=== PATIENT | female | born 1975 | race Caucasian/White ===

== ENCOUNTER → 2017-07-16 13:21 | Outpatient (CLI) | payer OTHER, SELFPAY ==
[2017-07-21 15:46] LABS: HPV Reflexed? NOT INDICATED
== END ==
PROVIDERS: Family Provider Family Medicine; PCP Family Medicine; Visit Provider Obstetrics & Gynecology
DX: Z12.4 Encounter for screening for malignant neoplasm of cervix (principal)
CPT/HCPCS: 88175; G0145

== ENCOUNTER → 2017-10-07 08:19 | Outpatient (CLI) | payer OTHER, SELFPAY ==
--- NOTE | 2017-10-07 08:21 | BI_ITS ---
MAMMOGRAPHY - BILATERAL SCREENING REASON FOR EXAM: Female, 42 years old. Routine annual screening examination. PERTINENT HISTORY: NO FM HX , RT SKIN TAG IN IMF-TINY, LAST MONTH PROGESTERONE TECHNIQUE: Digital bilateral breast loni (3D mammographic acquisition) in the CC and MLO projections. 2-D mediolateral oblique (MLO) and craniocaudad (CC) views of both breasts were obtained. CAD: Full Field Digital Mammography with Computer Added Detection was performed. COMPARISON: Sep 18 2016 3:09pm FINDINGS: Breast Composition: The breasts are heterogeneously dense, which may obscure small masses. There is an new round density in the far posterior aspect of the right breast noted on the MLO view at the edge of the film for which further evaluation by spot compression views and ultrasound would be recommended. There are no suspicious calcifications. No other significant abnormalities are identified. BI/SCREENING MAMM (CAD), BILAT IMPRESSION: Further imaging evaluation recommended, as described above. (E) ASSESSMENT CATEGORY: BIRADS Category 0: Incomplete. Need additional imaging evaluation. A letter regarding these results will be sent to the patient by the facility within 30 days. Approximately 10% of breast cancers are not detected by mammography. A normal mammogram should not delay biopsy of a clinically suspicious abnormality. [id number] Electronically Signed: Lacey Larsen MD at 16:09 EDT Tel , Service support ,
== END ==
PROVIDERS: Family Provider Family Medicine; PCP Family Medicine; Visit Provider Obstetrics & Gynecology
DX: Z12.31 Encounter for screening mammogram for malignant neoplasm of breast (principal)
CPT/HCPCS: 77063; 77067

== ENCOUNTER → 2017-10-21 10:02 | Outpatient (CLI) | payer OTHER, SELFPAY ==
--- NOTE | 2017-10-21 10:06 | US_ITS ---
STUDY: ULTRASOUND BREAST - RIGHT REASON FOR EXAM: Female, 42 years old. Abnormal screening mammogram. TECHNIQUE: Axial and longitudinal images of the RIGHT breast were performed with a high resolution ultrasound transducer. COMPARISON: Comparison is made with prior mammogram dated October 21, 2017 and October 07, 2017. FINDINGS: RIGHT Breast: There is a 3 mm x 3 mm x 2 mm cyst at 11:00 position breast at 4 cm from nipple. This also evidence of a 6 mm x 7 mm x 2 mm cyst at the 10:00 position breast at 6 cm from the nipple. US/Breast Limited Unilateral IMPRESSION: 2 small cysts are seen as described. Routine mammographic follow-up is recommended. ASSESSMENT CATEGORY: BIRADS Category 2: Benign. A letter regarding these results will be sent to the patient by the facility within 30 days. Electronically Signed: Collin Obando MD at 13:43 EDT Tel [phone], Service support ,
--- NOTE | 2017-10-21 10:06 | BI_ITS ---
MAMMOGRAPHY - UNILATERAL DIAGNOSTIC: RIGHT BREAST REASON FOR EXAM: Female, 42 years old. Abnormal screening mammogram. PERTINENT HISTORY: Non-contributory. TECHNIQUE: Compression spot views of the right breast were obtained. Were obtained. CAD: Full Field Digital Mammography with Computer Added Detection was performed. COMPARISON: Comparison is made with prior examination of October 07, 2017. FINDINGS: Breast Composition: The breasts are heterogeneously dense, which may obscure small masses. There are no dominant masses or suspicious calcifications. A faint 5.6 mm nodule is seen deep in the posterior aspect of the right breast. This is not well seen on the craniocaudad view. Correlation with ultrasound is recommended. No other significant abnormalities are identified. BI/DIAG MAMM W/CAD, UNILAT IMPRESSION: 5.6 mm nodule deep in the posterolateral aspect of the right breast as described. Correlation with ultrasound is recommended. ASSESSMENT CATEGORY: BIRADS Category 0: Incomplete. Need additional imaging evaluation. A letter regarding these results will be sent to the patient by the facility within 30 days. Approximately 10% of breast cancers are not detected by mammography. A normal mammogram should not delay biopsy of a clinically suspicious abnormality. Electronically Signed: Collin Obando MD at 13:07 EDT Tel [phone], Service support ,
== END ==
PROVIDERS: Family Provider Family Medicine; PCP Family Medicine; Visit Provider Obstetrics & Gynecology
DX: R92.2 Inconclusive mammogram (principal)
CPT/HCPCS: 76642; 77065

== ENCOUNTER → 2018-12-13 | Outpatient (CLI) | payer OTHER, SELFPAY ==
--- NOTE | 2018-12-13 13:22 | BI_ITS ---
MAMMOGRAPHY - BILATERAL SCREENING REASON FOR EXAM: Female, 43 years old. Routine annual screening examination. PERTINENT HISTORY: Non-contributory. TECHNIQUE: Digital bilateral breast nancy (3D mammographic acquisition) in the CC and MLO projections. 2-D mediolateral oblique (MLO) and craniocaudad (CC) views of both breasts were obtained. CAD: Full Field Digital Mammography with Computer Added Detection was performed. COMPARISON: Comparison is made with prior study dated October 07, 2017 and September 18, 2016. FINDINGS: Breast Composition: The breasts are heterogeneously dense, which may obscure small masses. There are no dominant masses or suspicious calcifications. No other significant abnormalities are identified. There has been no significant change since the prior study. BI/SCREEN MAMM (CAD) W/NANCY BILAT IMPRESSION: Stable bilateral screening mammogram. Yearly follow-up mammogram recommended. (A) ASSESSMENT CATEGORY: BIRADS Category 1: Negative. A letter regarding these results will be sent to the patient by the facility within 30 days. Approximately 10% of breast cancers are not detected by mammography. A normal mammogram should not delay biopsy of a clinically suspicious abnormality. [id number] Electronically Signed: Collin Obando, at 15:42 EDT , Service support ,
== END | disposition home or self-care (01) ==
LOC: OPBI 13:20
PROVIDERS: Family Provider Family Medicine; PCP Family Medicine; Referring Provider Obstetrics & Gynecology; Visit Provider Obstetrics & Gynecology
DX: Z12.31 Encounter for screening mammogram for malignant neoplasm of breast (principal)
CPT/HCPCS: 77063; 77067

== ENCOUNTER → 2019-03-22 08:10 | Outpatient (CLI) | payer OTHER, SELFPAY ==
[2019-03-22 10:23] LABS: Vitamin D,25 Hydroxy 31.5 ng/mL (29.95-100.01)
[2019-03-22 10:26] LABS: Anion Gap 6 (5-15); BUN 13 mg/dL (7-18); BUN/Creat Ratio 15.1 RATIO (10-20); Calcium,Total 9.1 mg/dL (8.5-10.1); Chloride 107 mmol/L (98-107); Cholesterol 177 mg/dL (200); Creatinine, Serum 0.86 mg/dL (0.55-1.02); EST Glomerular Filtration Rate 76 mL/min (>60); Est Glom Filt Rate - Afr Amer 91 mL/min (>60); Glucose 90 mg/dL (74-106); High Density Lipoprotein 64 mg/dL; Potassium 4.3 mmol/L (3.5-5.1); Sodium Level 139 mmol/L (136-145); Thyroid Stim Hormone (TSH) 2.62 uIU/mL (0.358-3.74); Triglycerides 87 mg/dL; Very Low Density Lipoprotein 17 mg/dL (5-40)
[2019-03-22 12:02] LABS: Iron 95 ug/dL (50-170)
== END ==
PROVIDERS: Family Provider Family Medicine; PCP Family Medicine; Referring Provider Family Medicine; Visit Provider Family Medicine
DX: F32.9 Major depressive disorder, single episode, unspecified (principal); L65.9 Nonscarring hair loss, unspecified; Z13.220 Encounter for screening for lipoid disorders
CPT/HCPCS: 36415; 80048; 80061; 82306; 83540; 84443

== ENCOUNTER → 2019-11-03 | Outpatient (CLI) | payer OTHER, SELFPAY ==
[2019-11-04 14:01] LABS: HPV Reflexed? NOT INDICATED
== END | disposition home or self-care (01) ==
LOC: LABSPEC 13:10
PROVIDERS: PCP Family Medicine; Visit Provider Obstetrics & Gynecology
DX: Z12.4 Encounter for screening for malignant neoplasm of cervix (principal)
CPT/HCPCS: 88175; G0145

== ENCOUNTER → 2019-12-15 13:00 | Outpatient (CLI) | payer OTHER, SELFPAY ==
--- NOTE | 2019-12-15 13:03 | BI_ITS ---
MAMMOGRAPHY - BILATERAL SCREENING REASON FOR EXAM: Female, 44 years old. Routine annual screening examination. PERTINENT HISTORY: Non-contributory. TECHNIQUE: Digital bilateral breast nancy (3D mammographic acquisition) in the CC and MLO projections. 2-D mediolateral oblique (MLO) and craniocaudad (CC) views of both breasts were obtained. CAD: Full Field Digital Mammography with Computer Added Detection was performed. COMPARISON: Comparison is made with prior study dated December 13, 2018 and October 21, 2017. FINDINGS: Breast Composition: The breasts are heterogeneously dense, which may obscure small masses. There are no dominant masses or suspicious calcifications. Stable benign appearing bilateral axillary nodes. No other significant abnormalities are identified. There has been no significant change since the prior study. BI/SCREEN MAMM (CAD) W/NANCY BILAT IMPRESSION: Stable bilateral screening mammogram. Yearly follow-up mammogram recommended. (A) ASSESSMENT CATEGORY: BIRADS Category 2: Benign. A letter regarding these results will be sent to the patient by the facility within 30 days. Approximately 10% of breast cancers are not detected by mammography. A normal mammogram should not delay biopsy of a clinically suspicious abnormality. [id number] Electronically Signed: Collin Obando, at 14:03 EDT , Service support ,
== END ==
PROVIDERS: PCP Family Medicine; Referring Provider Obstetrics & Gynecology; Visit Provider Obstetrics & Gynecology
DX: Z12.31 Encounter for screening mammogram for malignant neoplasm of breast (principal)
CPT/HCPCS: 77063; 77067

== ENCOUNTER → 2021-01-17 10:16 | Outpatient (CLI) | payer OTHER, SELFPAY ==
--- NOTE | 2021-01-17 10:35 | BI_ITS ---
MAMMOGRAPHY - BILATERAL SCREENING REASON FOR EXAM: Female, 45 years old. Routine annual screening examination. PERTINENT HISTORY: Non-contributory. TECHNIQUE: Digital bilateral breast nancy (3D mammographic acquisition) in the CC and MLO projections. 2-D mediolateral oblique (MLO) and craniocaudad (CC) views of both breasts were obtained. CAD: Full Field Digital Mammography with Computer Added Detection was performed. COMPARISON: Comparison is made with prior study 12/15/2019 and 12/13/2018. FINDINGS: Breast Composition: The breasts are heterogeneously dense, which may obscure small masses. There are no dominant masses or suspicious calcifications. Stable small benign-appearing bilateral axillary nodes. No other significant abnormalities are identified. There has been no significant change since the prior study. BI/SCRN MAMM (CAD)W/NANCY BILAT IMPRESSION: Stable bilateral screening mammogram. Yearly follow-up mammogram recommended. (A) ASSESSMENT CATEGORY: BIRADS Category 2: Benign. A letter regarding these results will be sent to the patient by the facility within 30 days. Approximately 10% of breast cancers are not detected by mammography. A normal mammogram should not delay biopsy of a clinically suspicious abnormality. [id number] Electronically Signed: Collin Obando MD at 12:03 EDT , Service support ,
== END ==
PROVIDERS: PCP Family Medicine; Referring Provider Obstetrics & Gynecology; Visit Provider Obstetrics & Gynecology
DX: Z12.31 Encounter for screening mammogram for malignant neoplasm of breast (principal)
CPT/HCPCS: 77063; 77067

== ENCOUNTER → 2021-03-06 15:54 | Outpatient (CLI) | payer OTHER, SELFPAY ==
--- NOTE | 2021-03-06 15:57 | RAD_ITS ---
STUDY: X-RAY - CERVICAL SPINE REASON FOR EXAM: Female, 45 years old. Neck pain and headache TECHNIQUE: 6 view(s) of the cervical spine were obtained. COMPARISON: None FINDINGS: Normal anterior atlantoaxial articulation. Normal odontoid process. There is straightening of the normal cervical lordosis. Normal vertebral bodies and endplates. Mild disc space narrowing. Normal visualized intervertebral neuroforamina. The soft tissue structures are unremarkable. RAD/Cerv Spine 4 or 5 Views IMPRESSION: Mild, age consistent degenerative changes, no acute findings Electronically Signed: Dio Guaman MD at 17:37 EDT , Service support ,
--- NOTE | 2021-03-06 15:57 | RAD_ITS ---
STUDY: X-RAY - THORACIC SPINE REASON FOR EXAM: Female, 45 years old. Mid back pain TECHNIQUE: 2 view(s) of the thoracic spine were obtained. COMPARISON: None. FINDINGS: Normal kyphosis of the thoracic spine. There is no substantial scoliosis. Normal thoracic vertebrae and endplates. Normal disc space heights. The soft tissue structures are unremarkable. RAD/Thoracic Spine 2 Views IMPRESSION: Normal x-ray examination of the thoracic spine. Electronically Signed: Dio Guaman MD at 17:37 EDT , Service support ,
--- NOTE | 2021-03-06 15:58 | RAD_ITS ---
STUDY: X-RAY - LEFT ANKLE REASON FOR EXAM: Female, 45 years old. Pain and stiffness TECHNIQUE: 3 view(s) of the ankle. COMPARISON: None. FINDINGS: Normal visualized distal tibia and fibula. Normal medial and lateral malleoli. Normal tibiotalar articulation and ankle mortise. Normal visualized talus and calcaneus. The visualized subtalar, talonavicular, calcaneocuboid and tarsal articulations are normal. The soft tissue structures are unremarkable. RAD/Ankle min 3 Views IMPRESSION: Normal x-ray examination of the ankle. Electronically Signed: Dio Guaman MD at 17:36 EDT , Service support ,
== END ==
PROVIDERS: PCP Family Medicine; Referring Provider Family Medicine; Visit Provider Family Medicine
DX: M79.18 Myalgia, other site (principal); M54.9 Dorsalgia, unspecified; M25.572 Pain in left ankle and joints of left foot
CPT/HCPCS: 72050; 72070; 73610

== ENCOUNTER 2021-04-01 17:57 | Outpatient (RCR) | payer OTHER, SELFPAY ==
--- NOTE | 2021-04-02 09:13 | HP.PTEVAL_ITS ---
Patient's Visit Information JORGE GLASER is a 45 year old F referred to Physical Therapy by Dr. Arvind Duran MD with a diagnosis of THORACIC BACK PAIN,MUSCLE TIGHTNESS. Date of Evaluation: 04/01/21 Physical Therapist: Phong Jean PT, Cert MDT, OCS - Visit Plan Frequency: 1-2x /Week Duration: 4 Weeks Plan: PT INTERVETIONS POSTURAL EX'S,THORACIC STRENGTHENING,DLS AND MODALTIES - Subjective This 45 y/o female presents to physical therapy with thoracic pain. Pain has been for thoracic pain for 2 years. No mechanism injury ,just insidious. Patient pain located between scapular and upper lumbar. Seen chiropractor doing adjustments. Symptoms intermittent. Dr. Duran x-rays -. Patient has muscle relaxers. Aggravating factors AM, end of day ,if pain at its worst lifting and bending can make it worse. Patient not hurting then work demand ate not the limiting factors . Patient pain can anterior chest pain. Denies paresthesia/tingling . Coughing/sneezing can be +. Pain can affects sleeping. Patient symptoms interfere with QOL and function. Patient goals to eliminate pain. SOCAIL: . VOCATION: [employer] - Pain Bilateral Back Pain Intensity (Out of 10): 2 Pain Intensity Range: 10 - Objective POSTURE: decrease kyphosis, increase lordosis. PLAPTION: tender levator right. AROM: BUE WFL EXCESSIVE. FLEBILITY: hamstrings WNL. MMT: quad/hams 4/5,hip flexion 4/5,ankle 4/5. BUE 4/5 except shoulder 4-/5,scapular 3/5. CERVICAL ROM: WNL. THORACIC : WNL ALL PLANES ,INCREASE EXTESNION. LUMBAR ROM: WNL ,EXCESSIVE EXTENSION - Special Tests Thoracic Sitting: Flexion - Mechanical Response: No effect Thoracic Sitting: Flexion - Symptoms During Testing: Increases Thoracic Sitting: Flexion - Symptoms After Testing: Worse Thoracic Sitting: Extension - Mechanical Response: No effect Thoracic Sitting: Extension - Symptoms During Testing: No effect Thoracic Sitting: Extension - Symptoms After Testing: No effect Thoracic Sitting: Right rotation - Mechanical Response: No effect Thoracic Sitting: Right Rotation - Symptoms During Testing: No effect Thoracic Sitting: Right Rotation - Symptoms After Testing: No effect Thoracic Sitting: Left rotation - Mechanical Response: No effect Thoracic Sitting: Left Rotation - Symptoms During Testing: No effect Thoracic Sitting: Left Rotation - Symptoms After Testing: No effect L/S Slump test left side: Negative L/S Slump test right side: Negative L/S Left Straight Leg Raise: Negative L/S Right Straight Leg Raise: Negative Lumbar Standing: Flexion - Mechanical Response: No effect Lumbar Standing: Flexion - Symptoms During Testing: No effect Lumbar Standing: Flexion - Symptoms After Testing: No effect Lumbar Standing: Extension - Mechanical Response: No effect Lumbar Standing: Extension - Symptoms During Testing: No effect Lumbar Standing: Extension - Symptoms After Testing: No effect Lumbar Standing: Right Side Glides - Mechanical Response: No effect Lumbar Standing: Right Side [place] - Symptoms During Testing: No effect Lumbar Standing: Right Side [place] - Symptoms After Testing: No effect Lumbar Standing: Left Side [place] - Mechanical Response: No effect Lumbar Standing: Left Side [place] - Symptoms During Testing: No effect Lumbar Standing: Left Side [place] - Symptoms After Testing: No effect - Balance/Special Test Scores Oswestry Low Back Score: 22 - Goals Goal 1:: Patient to be I with HEP for spine Goal Time Frame: 4-6 Weeks Goal 2:: Improve posture for ADL'S to improve function Goal Time Frame: 4-6 Weeks Goal 3:: Patient to decrease thoracic pain by 50% or> to improve function and QOL Goal Time Frame: 4-6 Weeks Goal 4:: Patient to improve postural strength to minimize symptoms by 50% improvement. Goal Time Frame: 4-6 Weeks Goal 5:: Patient to improve back owestry score by 5 points to improve QOL. Goal Time Frame: 4-6 Weeks - Rehabilitation Potential Physical Therapy Diagnosis: Patient has increase lordosis and postural weakness with increase mobility in thoracic and lumbar spine with pain laxity in joints along with general weakness benefit from skilled PT Rehabilitation Potential: Good - Anticipated Interventions Patient/Client Instruction: Educate patient on: Condition, Plan of Care For the Purpose of:: To decrease pain, To improve muscle performance and motor function, To improve ability to perform ADL's, To increase tolerance to activity/condition/position, To improve ability of physical actions for home/community/work/leisure, To improve health of tissue, To decrease soft tissue restriction, To increase flexibility/ROM, To reduce risk of recurrence Therapeutic Exercise to Include: Strength training, Endurance training, Balance training, Postural training, Flexibilty training, Dynamic Lumbar Stabilization For the Purpose of:: To decrease pain, To improve muscle performance and motor function, To improve ability to perform ADL's, To increase tolerance to activity/condition/position, To improve performance and independence with ADL's, To improve ability of physical actions for home/community/work/leisure, To improve health of tissue, To decrease soft tissue restriction, To increase flexibility/ROM, To prevent re-injury TENS: Yes IF ES: Yes Cryotherapy (ice pack, ice massage): Yes Thermo therapy (hot pack): Yes Ultrasound (thermal/non thermal): Yes For the Purpose of:: To decrease pain, To increase ROM, To improve nutrient delivery to tissue, To increase oxygenation perfusion, To improve health of tissue, To decrease soft tissue restriction Thank you for the opportunity to evaluate your patient. For Medicare and Medicare HMO plans, please review the plan of care and approve it. It will need to be FAXED BACK to us at [phone] for Medicare purposes. For Medicare only, by signing this I certify the plan of care. Please let me know if there are questions or concerns regarding this plan of care. Physician Signature: Date:
--- NOTE | 2021-08-02 07:51 | HP.PT.NRP ---
JORGE GLASER was seen in my office for initial evaluation on 04/01/21. The following Plan of Care was established for this patient: Initial Frequency: 1-2x /Week Initial Duration: 4 Weeks Patient/Client Instruction: Educate patient on: Condition, Plan of Care For the Purpose of:: To decrease pain, To improve muscle performance and motor function, To improve ability to perform ADL's, To increase tolerance to activity/condition/position, To improve ability of physical actions for home/community/work/leisure, To improve health of tissue, To decrease soft tissue restriction, To increase flexibility/ROM, To reduce risk of recurrence Therapeutic Exercise to Include: Strength training, Endurance training, Balance training, Postural training, Flexibilty training, Dynamic Lumbar Stabilization For the Purpose of:: To decrease pain, To improve muscle performance and motor function, To improve ability to perform ADL's, To increase tolerance to activity/condition/position, To improve performance and independence with ADL's, To improve ability of physical actions for home/community/work/leisure, To improve health of tissue, To decrease soft tissue restriction, To increase flexibility/ROM, To prevent re-injury TENS: Yes IF ES: Yes Cryotherapy (ice pack, ice massage): Yes Thermo therapy (hot pack): Yes Ultrasound (thermal/non thermal): Yes For the Purpose of:: To decrease pain, To increase ROM, To improve nutrient delivery to tissue, To increase oxygenation perfusion, To improve health of tissue, To decrease soft tissue restriction This patient was last seen in our office . Pertinent comments regarding their Physical therapy will appear below: Patient was seen for PT for intial evaluation for HEP At this point I will be discontinuing this patient from physical therapy. I would be happy to see this patient again in the future if found appropriate by the physician. Thank you! Phong Jean, PT, Cert MDT, OCS Balance/Gait/Functional tests - Balance/Special Test Scores Oswestry Low Back Score: 22
== END 2021-04-01 19:00 | disposition home or self-care (01) ==
LOC: PT 17:57
PROVIDERS: PCP Family Medicine; Referring Provider Family Medicine; Visit Provider Family Medicine
DX: M54.6 Pain in thoracic spine (principal); R29.898 Other symptoms and signs involving the musculoskeletal system
CPT/HCPCS: 97110; 97161

== ENCOUNTER → 2022-07-03 | Outpatient (CLI) | payer OTHER, SELFPAY ==
--- NOTE | 2022-07-03 15:44 | MRI_ITS ---
STUDY: MRI LEFT ANKLE WITHOUT CONTRAST REASON FOR EXAM: Female, 47 years old. ANKLE PAIN TECHNIQUE: Standardized fat and water weighted pulse sequences were obtained in all 3 orthogonal planes. COMPARISON: X-ray March 06, 2021 FINDINGS: Normal subcutis adipose space. Normal posterior tibialis tendon. Normal flexor digitorum longus tendon. Normal flexor hallucis longus tendon. Normal peroneus longus and brevis tendons. Normal tibialis anterior tendon. Normal extensor hallucis longus tendon. Normal extensor digitorum longus tendons. Normal Achilles tendon and teno-osseous insertion. Normal plantar fascia. Normal plantar calcaneal tubercles. Normal intrinsic muscles of the rearfoot. Normal distal tibiofibular syndesmotic ligamentous complex. Normal lateral ligamentous complex. Normal subtalar ligaments and sinus tarsi. Normal deltoid ligamentous complexes. Normal plantar calcaneonavicular (spring) ligament. Normal tibiotalar articulation. Normal talar dome. There is os trigonum. Normal subtalar articulations. There is marrow edema of the neck and head of the talus. There is marrow edema of the navicular. There is moderate joint space narrowing and spurring with subchondral cysts of the talonavicular articulation. Normal calcaneocuboid articulation. Normal navicular-cuneiform articulations. 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 Electronically Signed: Maurice Harmon MD at 8:30 EST ,
== END | disposition home or self-care (01) ==
LOC: MRI 15:24
PROVIDERS: PCP Family Medicine; Visit Provider Family Medicine
DX: S92.252A Displaced fracture of navicular [scaphoid] of left foot, initial encounter for closed fracture (principal); M19.072 Primary osteoarthritis, left ankle and foot; R60.0 Localized edema; M25.579 Pain in unspecified ankle and joints of unspecified foot
CPT/HCPCS: 73721

== ENCOUNTER → 2022-09-30 | Outpatient (CLI) | payer OTHER, SELFPAY ==
[2022-10-07 14:09] LABS: HPV APTIMA, High Risk Negative (Negative)
== END | disposition home or self-care (01) ==
PROVIDERS: PCP Family Medicine; Visit Provider Nurse Practitioner Women's Health
DX: Z01.419 Encounter for gynecological examination (general) (routine) without abnormal findings (principal)
CPT/HCPCS: 87624; 88175; G0145

== ENCOUNTER → 2022-10-06 | Outpatient (CLI) | payer OTHER, SELFPAY ==
--- NOTE | 2022-10-06 14:50 | BI_ITS ---
MAMMOGRAPHY - BILATERAL SCREENING REASON FOR EXAM: Female, 47 years old. Routine annual screening examination. PERTINENT HISTORY: Non-contributory. TECHNIQUE: Digital bilateral breast nancy (3D mammographic acquisition) in the CC and MLO projections. 2-D mediolateral oblique (MLO) and craniocaudad (CC) views of both breasts were obtained. CAD: Full Field Digital Mammography with Computer Added Detection was performed. COMPARISON: Comparison is made with prior study January 17, 2021. FINDINGS: Breast Composition: The breasts are heterogeneously dense, which may obscure small masses. There are no dominant masses or suspicious calcifications. Stable benign-appearing bilateral axillary lymph nodes. No other significant abnormalities are identified. There has been no significant change since the prior study. BI/SCRN MAMM (CAD)W/NANCY BILAT IMPRESSION: Stable bilateral screening mammogram. Yearly follow-up mammogram recommended. (A) ASSESSMENT CATEGORY: BIRADS Category 2: Benign. A letter regarding these results will be sent to the patient by the facility within 30 days. Approximately 10% of breast cancers are not detected by mammography. A normal mammogram should not delay biopsy of a clinically suspicious abnormality. [id number] Electronically Signed: Collin Obando MD at 15:44 EDT ,
== END | disposition home or self-care (01) ==
PROVIDERS: PCP Family Medicine; Referring Provider Nurse Practitioner Women's Health; Visit Provider Nurse Practitioner Women's Health
DX: Z12.31 Encounter for screening mammogram for malignant neoplasm of breast (principal)
CPT/HCPCS: 77063; 77067

== ENCOUNTER → 2025-04-25 | Outpatient (CLI) | payer OTHER, SELFPAY ==
--- NOTE | 2025-04-25 13:53 | US_ITS ---
EXAM: Targeted ultrasound of the left axilla. CLINICAL HISTORY: Palpable left axillary lump. COMPARISON: None TECHNIQUE: Targeted ultrasound of the left axilla was performed. FINDINGS: No sonographic abnormality is seen. US/Axilla - Left IMPRESSION: No sonographic abnormality is seen. Clinical correlation recommended. Reading Location: [id number]
--- OUTSIDE RECORDS SUMMARY | 2025-04-25 18:11 | XMS RPT_ITS | CCD ---
Author Organization [facility] Care Team Providers Care Flag Signalman Name Role Phone Dr. Arvind Duran Primary Care Provider [phone] Dr. Arvind Duran Referring Provider Javon CHASE, FARRAH Sheppard Attending Provider Charles Hebert Attending Unavailable Charles Hebert Referring Unavailable Charles Hebert Primary Care Unavailable Medications Current Medications Medication Drug Class(es) Dates Sig (Normalized) Sig (Original) traMADol hydrochloride 50 mg oral tablet (1 source) Opioid Agonist Start: 09-30-2022 take 50 mg by mouth three times daily Tramadol Active 50 MG PO THREE TIMES A DAY September 30, 2022 12:00am Completed/Discontinued Medications Medication Drug Class(es) Dates Sig (Normalized) Sig (Original) acetaminophen 325 mg / HYDROcodone bitartrate 5 mg oral tablet (3 sources) Opioid Agonist Start: 04-19-2016 End: 09-30-2022 take 1 tablet by mouth every six hours as needed Hydrocodone-Acetami nophen Discontinued 1 TABLET PO EVERY 6 HOURS NEEDED 5 April 19, 2016 1:00am September 30, 2022 2:18pm Problems Problem Classification Problem Date Documented Da te Episodic/Chronic Other female genital disorders (1 source) History of dysmenorrhea; Translations: [Personal history of other diseases of the female genital tract] 09-30-2022 Episodic Other female genital disorders (1 source) Personal history of other diseases of the female genital tract; Translations: [Personal history of other genital system and obstetric disorders] 09-30-2022 Episodic Results Test Name Value Interpretation Reference Range Facility Cervical or vagninal specime n microscopic examination by cytology stain (reported asOrdered By: Valarie Alejandro on 09-30-2022 Cytology report Cyto stain Doc (Cvx/Vag) Comment . [facility] Comment on above: The Pap smear is a s creening test designed to aid in thedetection of premalignant and malignant conditions of theuterine cervix. It is not a diagnostic procedure andshould not be used as the sole means of detecting cervicalcancer. Both false-positive and false-negative reports dooccur. Detection in cervical specim en of any of human papilloma virus (HPV) 16, 18, 31, 33,Ordered By: Valarie Alejandro on 09-30-2022 HPV 16+18+31+33+35+39+45+51 +52+56+58+59+66+68 DNA Probe+sig amp Ql (Cvx) Negative Negative [facility] Comment on above: This nucleic acid am plification test detects fourteen high-risk HPV types (16,18,31,33,35,39,45,51,52,56,58,59,66,68)without differentiation. Laboratory - CytologyOrdered By: Valarie Alejandro on 09-30-2022 Emergency Medicine Physician Cyto stain Nom (Cvx/Vag) [ID] Comment . [facility] Comment on above: Lori Courtney, Cyto technologist (ASCP) Laboratory - Miscellaneous t estsOrdered By: Valarie Alejandro on 09-30-2022 Service comment (Unsp spec) [Interp] Comment . [facility] Comment on above: This liquid based Th inPrep(R) pap test was screened withthe use of an image guided system. Service comment (Unsp spec) [Interp] . . [facility] Liquid-based cerv Pap + CT/G C by SKY w reflex to high-risk HPV for ASCUSOrdered By: Valarie Alejandro on 09-30-2022 Cytology report Cyto stain.thin prep Doc (Cvx/Vag) Comment . [facility] Comment on above: Criteria not met, HP V Genotype not performed.Performed at: - [address] [id number] Director: Bhavana Lezama MD, Phone: [phone] at: =[facility] [id number] Director: Bhavana Lezama MD, Phone: [phone] No Panel InformationOrdered By: Valarie Alejandro on 09-30-2022 Pathology report final diagnosis Narrative Comment . [facility] Comment on above: NEGATIVE FOR INTRAEP ITHELIAL LESION OR MALIGNANCY. Vital Signs Date Time Vital Sign Value Performing Clinician Reinaldo ramachandran 09-30-2022 14:14-0400 Body height 154.[address] Arvind Duran Work Phone: [facility] 09-30-2022 14:14-0400 Body mass index (BMI) [Ratio] 30.9 kg/m2 Dr. Arvind Duran Work Phone: [facility] 09-30-2022 14:14-0400 Body weight 74.[address] Arvind Duran Work Phone: [facility] 09-30-2022 14:14-0400 Diastolic blood pressure 72 mm[Hg] Dr. Arvind Duran Work Phone: [facility] 09-30-2022 14:14-0400 Systolic blood pressure 110 mm[Hg] Dr. Arvind Duran Work Phone: [facility] Encounters Encounter Date Encounter Type Care Provider Facility Start: 01-04-2024 Encounter for genera l adult medical examination without abnormal findings [facility] Start: 01-04-2024 ambulatory [facility] Facility: [facility] Start: 10-06-2022 End: 10-06-[address] Arvind Duran Work Phone: [facility] Work Phone: Start: 10-06-2022 End: 10-06-[address] Arvind Duran Work Phone: [facility]-Outpatient Breast Imaging Start: 09-30-2022 End: 09-30-[address] Arvind Duran Work Phone: [facility]-Laboratory, Specimen Start: 09-30-2022 End: 09-30-[address] Arvind Duran Work Phone: [facility] Start: 07-03-2022 End: 07-03-[address] [facility] Work Phone: Start: 07-03-2022 End: 07-03-[address] [facility] - [facility] Procedures Date Procedure Procedure Detail Performing Clinician Start: 10-06-2022 Screening mammography Pino lucilaKieran PattersonArvind Ranney Work Phone: Start: 07-03-2022 MRI of joint of lowe r extremity Plan of Treatment Date Care Activity Detail Author US [facility] transvaginal [facility] Payers Date Payer Category Payer Self-pay [id number] 2024 Unknown [id number] Unknown [id number] Social History Date Type Detail Facility [facility] Work Phone: Start: 1975 Sex Assigned At Female [facility] Start: 04-19-2016 End: 09-30-2022 Tobacco smoking status [facility]IS Unknown if ever smoked [facility] Clinical Note 09-30-2022 Note Date & Type Note Facility 09-30-[address] [facility] Pap Smear Specimen Adequacy September 30, 2022 6:04pm Comment . Satisfactory for evaluation. Endocervical and/or squamous metaplasticcells (endocervical component) are present. Comment on above: Satisfactory for ling luation. Endocervical and/or squamous metaplasticcells (endocervical component) are present. Evaluation note Note Date & Type Note Facility Evaluation note No assessment information availa ble [facility] Work Phone: Evaluation note Note Date & Type Note Facility Evaluation note Diagnosis Onset Date History of dysmenorrhea acut e Encounter for routine gyneco logical examination noneactive 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 Reason for Visit History of dysmenorr hea Encounter for routine gynecological examination Advance Directives No Advanced Directives Records Found Advance Directive Response Recorded Date/ Time Living Will No April 19, 2 016 3:00pm Power of Concrete Puddler No April 19, 2016 3:00pm Advance Directive Response Recorded Date/ Time Living Will No April 19, 2 016 4:00pm Power of Concrete Puddler No April 19, 2016 4:00pm Family History No Family History Records Found Relationship Condition Age at Onset Recorded Date/T bebo mother Hypertension Unknown sister Hypertension Unknown father Cardiac disease Unknown Summary Purpose Additional Source Comments Goals (unrecognized section and content) Goals may be documented in a n alternate sectionGoals may be documented in an alternate sectionGoals may be documented in an alternate section Care Teams (unrecognized sec tion and content) Team Status: Active Member Role Status Dates Dr. Arvind Duran MD Family Provider Active Dr. Arvind Duran MD Primary Care Provider Activ e Team Status: Inactive Member Role Status Dates Dr. Arvind Duran MD Primary Care Provider, Atte nding Provider Active Team Status: Inactive Member Role Status Dates Dr. Arvind Duran MD Primary Care Provider, Refe rring Provider Active Valarie Alejandro SENIOR COMMUNICATIONS SPECIALIST, SENIOR COMMUNICATIONS SPECIALIST-C Attending Provider Active Team Status: Inactive Member Role Status Dates Dr. Arvind Duran MD Primary Care Provider Activ dalia Alejandro SENIOR COMMUNICATIONS SPECIALIST, SENIOR COMMUNICATIONS SPECIALIST-C Attending Provider Active Team Status: Inactive Member Role Status Dates Dr. Arvind Duran MD Primary Care Provider Activ dalia Alejandro SENIOR COMMUNICATIONS SPECIALIST, SENIOR COMMUNICATIONS SPECIALIST-C Attending Provider, Referring Provider Active INFORMATION SOURCE (unrecogn ized section and content) DATE CREATED AUTHOR 01/05/2024 [facility] FOR RECORDS PERTAINING TO PATIENTS WHO ARE OR HAVE BEEN ENROLLED IN A CHEMICAL DEPENDENCY/SUBSTANCEABUSE PROGRAM, SOME INFORMATION MAY BE OMITTED. This clinical summary was aggregated from multiple sources. Caution should be exercised in using it in the provision of clinical care. This summary normalizes information from multiple sources, and as a consequence, information in this document may materially change the coding, format and clinical context of patient data. In addition, data may be omitted in some cases. CLINICAL DECISIONS SHOULD BE BASED ON THE PRIMARY CLINICAL RECORDS. [facility] [employer] provides no warranty or guarantee of the accuracy or completeness of information in this document.
== END | disposition home or self-care (01) ==
LOC: US 13:50
PROVIDERS: PCP Family Medicine; Referring Provider Family Medicine; Visit Provider Family Medicine
DX: R22.32 Localized swelling, mass and lump, left upper limb (principal)
CPT/HCPCS: 76882

== ENCOUNTER → 2025-05-15 | Outpatient (CLI) | payer OTHER, SELFPAY ==
--- NOTE | 2025-05-15 14:25 | BI_ITS ---
EXAM: SCRN MAMM (CAD)W/NANCY BILAT DATE: 05/15/2025 CLINICAL HISTORY: F, Age 49 y/o , SCREENING TECHNIQUE: Procedure Code: [id number] Modality: MG Procedure: SCRN MAMM (CAD)W/NANCY BILAT COMPARISON: Prior exam(s) dated 10/06/2022 . FINDINGS: TISSUE DENSITY: There are scattered areas of fibroglandular density. Bilateral Breast Mammographic Findings: Stable focal nodular densities are seen in both breasts. Benign-appearing round microcalcifications are seen in both breasts. No suspicious masses, suspicious cluster of microcalcifications, architectural distortion or secondary signs of malignancy is identified in either breast. BI/SCRN MAMM (CAD)W/NANCY BILAT IMPRESSION: Benign screening mammogram. OVERALL FINAL ASSESSMENT BI-RADS 2: BENIGN RECOMMENDATION: Routine annual follow-up in 1 Year Additional Recommendation none A letter with findings and recommendations will be mailed to the patient. Reading Location: [id number]
== END | disposition home or self-care (01) ==
LOC: OPBI 14:24
PROVIDERS: PCP Family Medicine; Referring Provider Family Medicine; Visit Provider Family Medicine
DX: Z12.31 Encounter for screening mammogram for malignant neoplasm of breast (principal)
CPT/HCPCS: 77063; 77067